=== PATIENT | female | born 1985 | race American Indian/Alaskan Native ===

== ENCOUNTER 2022-02-08 18:27 | Inpatient (IN) | payer OTHER ==
[2022-02-08] MEDS ORDERED: ACETAMINOPHEN 325 MG TAB PO PRN (23:39)
[2022-02-08] MEDS ORDERED: fentaNYL 100 MCG/2 ML INJ IV PRN (23:39)
[2022-02-08] MEDS ORDERED: ePHEDrine SULFATE 50 MG/1 ML INJ IV PRN (23:39)
[2022-02-08] MEDS ORDERED: BUTORPHANOL 2 MG/1 ML INJ IV PRN (23:39)
[2022-02-08] MEDS ORDERED: LIDOCAINE (2%) 20 MG/1 ML VIAL 20 ML MDV INFILTRATI ONE (23:39)
[2022-02-08] MEDS ORDERED: LACTATED RINGERS 1,000 ML IV SCH (23:45)
[2022-02-08] MEDS ORDERED: OXYTOCIN DRIP 30 UNITS/500 ML BAG IV SCH (23:45)
[2022-02-09 00:21] LABS: Hematocrit 38.1 % (30.3-42.9); Hemoglobin 12.3 gm/dl (10.1-14.3); Mean Corpuscular HGB Conc 32 % (30-34); Mean Corpuscular Volume 82 fl (79-97); Platelet Count 229 K/mm3 (140-440); Red Blood Count 4.65 M/mm3 (3.65-5.03); Red Cell Distribution Width 15.7 % (13.2-15.2)
[2022-02-09] MEDS ORDERED: ACETAMINOPHEN 325 MG TAB PO PRN (00:21)
[2022-02-09] MEDS ORDERED: WITCH HAZEL/ GLYCERIN PAD TP PRN (00:21)
[2022-02-09] MEDS ORDERED: LANOLIN/ZINC/DIMETHICONE (LANSINOH) 7 GM TP PRN (00:21)
[2022-02-09] MEDS ORDERED: HYDROcodone/ACETAMINOPHEN 5-325 MG TAB PO PRN (00:21)
[2022-02-09] MEDS ORDERED: BENZOCAINE/MENTHOL 20/0.5% TOP SPRAY 56 GM TP PRN (00:21)
[2022-02-09] MEDS: IBUPROFEN 800 MG TAB PO SCH ×5 (00:59→23:10)
[2022-02-09 01:03] LABS: Alanine Aminotransferase 9 units/L (7-56); Blood Urea Nitrogen 6 mg/dL (7-17); Calcium 8.7 mg/dL (8.4-10.2); Hemolysis Index 16
[2022-02-09 01:07] LABS: BUN/Creatinine Ratio 9
--- NOTE | 2022-02-09 01:07 | Procedure Note ---
OB Delivery Note - Delivery Date of Delivery: 02/08/22 Surgeon: ARMANDO SALAMANCA Estimated blood loss: 300cc - Vaginal Delivery presentation: vertex Delivery position: OA Intrapartum events: labor-<37 weeks, precipitous labor- <3hr Delivery induction: none Delivery monitor: external FHT, external uterine Route of delivery: Delivery placenta: spontaneous Delivery cord: 3 umbilical vessels Episiotomy: none Delivery laceration: 2nd degree Delivery repair: vicryl Anesthesia: local Delivery comments: This was a precipitous delivery. - Infant A at 1 minute: 7 at 5 minutes: 9 Infant Gender: Male
[2022-02-09 01:13] LABS: Bilirubin,Urine NEG (Negative); Blood,Urine NEG (Negative); Color,Urine Amber (Yellow)
--- NOTE | 2022-02-09 01:13 | History and Physical Report ---
History of Present Illness Date of examination: 02/08/22 Date of admission: 02/08/22 22:37 Chief complaint: Contractions History of present illness: 36-year-old primigravida at approximately 31-33 weeks gestation presented to OB triage reporting regular and painful uterine contractions. There was no vaginal bleeding. There was leaking of fluid. There was good movement. The patient reports that she did not realize that she was until today. She has no care. In OB triage, cervical exam was complete/100%/+2 station. The patient is ad mitted to labor and delivery in anticipation of a precipitous delivery. Past History Past Medical History: asthma Past Surgical History: no surgical history Family/Genetic History: none Social history: no significant social history - Obstetrical History Expected Date of Delivery: 04/06/22 Actual Gestation: 32 Week(s) 0 Day(s) : 1 Medications and Allergies Allergies Allergy/AdvReac Type Severity Reaction Status Date / Time nickel Allergy Rash Verified 02/08/22 18:59 Active Meds: Active Medications Acetaminophen (Acetaminophen 325 Mg Tab) 650 mg PO Q4H PRN PRN Reason: Pain MILD(1-3)/Fever >100.5/RICHARD Hydrocodone Bitart/Acetaminophen (Hydrocodone/Acetaminophen 5-325 Mg Tab) 2 each PO Q6H PRN PRN Reason: Pain, Moderate (4-6) Benzocaine/Menthol (Benzocaine/Menthol 20/0.5% Top [place] 56 Gm) 1 spray TP PRN PRN PRN Reason: Episiotomy Pain Docusate Sodium (Docusate Sodium 100 Mg Cap) 100 mg PO BID [facility] Ibuprofen (Ibuprofen 800 Mg Tab) 800 mg PO Q6HR [facility] Last Admin: 02/09/22 00:59 Dose: 800 mg Multi-Ingredient Ointment (Lanolin/Zinc/Dimethicone (Lansinoh) 7 Gm) 1 applic TP PRN PRN PRN Reason: Sore Nipples Multivitamins/Iron/Calcium ( [id number] Fumarate-Folic Acid Vit Tab) 1 ea ch PO QDAY [facility] Sodium Chloride (Sodium Chloride 0.9% 10 Ml Flush Syringe) 10 ml IV PRN NR Stop: 02/10/22 00:59 Witch Trina/Glycerin (Witch Tirna/ Glycerin Pad) 1 each TP PRN PRN PRN Reason: Hemorrhoid/cleansing/soothing Review of Systems All systems: negative - Vital Signs Vital signs: Vital Signs Temp Pulse Resp BP Pulse Ox 98.9 F 88 16 150/80 100 02/08/22 18:54 02/08/22 18:54 02/08/22 18:54 02/08/22 18:54 02/08/22 18:54 Temp Pulse Resp BP Pulse Ox 98.5 F 69 20 159/89 98 02/08/22 22:51 02/09/22 01:02 02/08/22 22:51 02/09/22 00:57 02/09/22 01:02 - Physical Exam Breasts: Positive: normal Cardiovascular: Regular rate Lungs: Positive: Normal air movement Abdomen: Positive: normal appearance Genitourinary (Female): Positive: normal external genitalia, normal perenium Vulva: both: normal Vagina: Positive: normal moisture Uterus: Positive: enlarged Adnexa: both: normal Anus/Rectum: Positive: normal perianal skin, hemorrhoids Extremities: Positive: normal Deep Tendon Reflex Grade: Normal +2 - Obstetrical FHR: category 1 Uterine Contraction Monitor Mode: Palpation Cervical Dilatation: 10 Cervical Effacement Percentage: 100 station: +2 Uterine Contraction Frequency (min): 5 Uterine Contraction Pattern: Regular Results Result Diagrams: 02/08/22 22:35 02/09/22 00:33 Abnormal lab results 02/08/22 Range/Units 22:35 WBC 15.6 H (4.5-11.0) K/mm3 MCH 26 L (28-32) pg RDW 15.7 H (13.2-15.2) % All other labs normal. Assessment and Plan - Patient Problems (1) labor in third trimester Current Visit: Yes Status: Acute Plan to address problem: 1.) This patient has no care. Gestational age is estimated to be between 31 and 33 weeks gestation. There is no reasonable opportunity at this time for intramuscular glucocorticoids to promote lung maturity or IV penicillin for intrapartum GBS prophylaxis since precipitous is eminent at this time. 2.) labs ordered. 3.) NICU will be in attendance.
[2022-02-09 01:25] LABS: Bacteria,Urine 2+ /HPF (Negative); Mucus,Urine 3+ /HPF
[2022-02-09 01:27] LABS: Amphetamine Screen,Urine PRESUMPTIVE NEGATIVE; Benzodiazepines Screen,Urine PRESUMPTIVE NEGATIVE; Cannabinoid Screen,Urine PRESUMPTIVE NEGATIVE; Cocaine Screen,Urine PRESUMPTIVE NEGATIVE; Methadone Screen,Urine PRESUMPTIVE NEGATIVE; Opiate Screen,Urine PRESUMPTIVE NEGATIVE
[2022-02-09 02:12] LABS: Uric Acid 4.6 mg/dL (3.5-7.6)
[2022-02-09 02:56] LABS: Creatinine,Urine 220.3 mg/dL (0.1-20.0)
[2022-02-09] MEDS: DOCUSATE SODIUM 100 MG CAP PO SCH ×2 (09:59→23:11)
[2022-02-09] MEDS: PRENATAL VIT27-FE FUMARATE-FOLIC ACID VIT TAB PO SCH (09:59)
--- NOTE | 2022-02-09 11:30 | Progress Note ---
Assessment and Plan PPD#1 with covid positive, asymptomatic on isolation and elevated BP 1. Will add labetalol 100mg bid for better control of HTN 2. Routine care; pt declines going home until tomorrow and will check cbc later this pm 3. All questions encouraged and answered Subjective Date of service: 02/09/22 Principal diagnosis: PPD#1 Interval history: pt has no complaints and went to see baby earlier unaware of positive covid until her test results returened. Vag bleed less than a period. Pt voiding without difficulty. Objective - Constitutional Vitals: Vital Signs - 12hr 02/08/22 02/08/22 02/08/22 23:32 23:37 23:42 Temperature Pulse Rate 73 79 83 Respiratory Rate Blood Pressure 157/77 Blood Pressure [Right] O2 Sat by Pulse 98 97 98 Oximetry O2 Sat by Pulse Oximetry [ Bilateral Throughout] 02/08/22 02/08/22 02/08/22 23:43 23:47 23:52 Temperature Pulse Rate 82 111 H 78 Respiratory Rate Blood Pressure 136/74 Blood Pressure [Right] O2 Sat by Pulse 99 97 Oximetry O2 Sat by Pulse Oximetry [ Bilateral Throughout] 02/08/22 02/08/22 02/09/22 23:57 23:58 00:02 Temperature Pulse Rate 77 77 78 Respiratory Rate Blood Pressure 139/76 Blood Pressure [Right] O2 Sat by Pulse 97 97 Oximetry O2 Sat by Pulse Oximetry [ Bilateral Throughout] 02/09/22 02/09/22 02/09/22 00:07 00:12 00:13 Temperature Pulse Rate 76 70 67 Respiratory Rate Blood Pressure 153/85 Blood Pressure [Right] O2 Sat by Pulse 97 98 Oximetry O2 Sat by Pulse Oximetry [ Bilateral Throughout] 02/09/22 02/09/22 02/09/22 00:17 00:22 00:27 Temperature Pulse Rate 72 70 73 Respiratory Rate Blood Pressure Blood Pressure [Right] O2 Sat by Pulse 98 98 98 Oximetry O2 Sat by Pulse Oximetry [ Bilateral Throughout] 02/09/22 02/09/22 02/09/22 00:32 00:37 00:42 Temperature Pulse Rate 79 71 76 Respiratory Rate Blood Pressure 158/84 Blood Pressure [Right] O2 Sat by Pulse 98 98 97 Oximetry O2 Sat by Pulse Oximetry [ Bilateral Throughout] 02/09/22 02/09/22 02/09/22 00:47 00:52 00:57 Temperature Pulse Rate 83 90 74 Respiratory Rate Blood Pressure 159/89 Blood Pressure [Right] O2 Sat by Pulse 97 97 97 Oximetry O2 Sat by Pulse Oximetry [ Bilateral Throughout] 02/09/22 02/09/22 02/09/22 01:02 01:07 01:12 Temperature Pulse Rate 69 77 76 Respiratory Rate Blood Pressure Blood Pressure [Right] O2 Sat by Pulse 98 97 98 Oximetry O2 Sat by Pulse Oximetry [ Bilateral Throughout] 02/09/22 02/09/22 02/09/22 01:17 01:22 01:27 Temperature Pulse Rate 80 78 68 Respiratory Rate Blood Pressure Blood Pressure [Right] O2 Sat by Pulse 97 98 99 Oximetry O2 Sat by Pulse Oximetry [ Bilateral Throughout] 02/09/22 02/09/22 02/09/22 01:28 01:32 01:37 Temperature Pulse Rate 64 72 67 Respiratory Rate Blood Pressure 157/84 Blood Pressure [Right] O2 Sat by Pulse 98 99 Oximetry O2 Sat by Pulse Oximetry [ Bilateral Throughout] 02/09/22 02/09/22 02/09/22 01:42 01:47 01:52 Temperature Pulse Rate 68 77 71 Respiratory Rate Blood Pressure Blood Pressure [Right] O2 Sat by Pulse 97 98 98 Oximetry O2 Sat by Pulse Oximetry [ Bilateral Throughout] 02/09/22 02/09/22 02/09/22 01:57 01:58 02:02 Temperature Pulse Rate 70 67 71 Respiratory Rate Blood Pressure 157/83 Blood Pressure [Right] O2 Sat by Pulse 97 97 Oximetry O2 Sat by Pulse Oximetry [ Bilateral Throughout] 02/09/22 02/09/22 02/09/22 02:07 02:12 02:17 Temperature Pulse Rate 69 67 66 Respiratory Rate Blood Pressure Blood Pressure [Right] O2 Sat by Pulse 97 97 97 Oximetry O2 Sat by Pulse Oximetry [ Bilateral Throughout] 02/09/22 02/09/22 02/09/22 02:22 02:27 02:28 Temperature Pulse Rate 63 65 61 Respiratory Rate Blood Pressure 158/84 Blood Pressure [Right] O2 Sat by Pulse 97 97 Oximetry O2 Sat by Pulse Oximetry [ Bilateral Throughout] 02/09/22 02/09/22 02/09/22 02:32 02:37 02:42 Temperature Pulse Rate 65 64 62 Respiratory Rate Blood Pressure Blood Pressure [Right] O2 Sat by Pulse 97 97 97 Oximetry O2 Sat by Pulse Oximetry [ Bilateral Throughout] 02/09/22 02/09/22 02/09/22 02:47 02:52 02:57 Temperature Pulse Rate 59 L 61 61 Respiratory Rate Blood Pressure Blood Pressure [Right] O2 Sat by Pulse 97 98 99 Oximetry O2 Sat by Pulse Oximetry [ Bilateral Throughout] 02/09/22 02/09/22 02/09/22 02:58 02:59 03:42 Temperature 98.5 F 98.2 F Pulse Rate 57 L 83 Respiratory 17 18 Rate Blood Pressure 149/85 133/89 Blood Pressure [Right] O2 Sat by Pulse 98 Oximetry O2 Sat by Pulse Oximetry [ Bilateral Throughout] 02/09/22 02/09/22 02/09/22 04:23 06:01 07:15 Temperature 98.0 F Pulse Rate 61 Respiratory 18 16 Rate Blood Pressure Blood Pressure 144/86 [Right] O2 Sat by Pulse 97 Oximetry O2 Sat by Pulse 98 Oximetry [ Bilateral Throughout] 02/09/22 07:28 Temperature Pulse Rate Respiratory Rate Blood Pressure Blood Pressure [Right] O2 Sat by Pulse Oximetry O2 Sat by Pulse 99 Oximetry [ Bilateral Throughout] General appearance: Present: no acute distress - Respiratory Respiratory effort: normal - Breasts Breasts: deferred - Cardiovascular Rhythm: regular - Gastrointestinal General gastrointestinal: Present: soft, non-tender - Genitourinary Female genitourinary: other (fundus firm 2cm below the umbilicus, firm and non- tender; no perineal swelling; lochia moderate) - Integumentary Integumentary: warm, dry - Neurologic Neurologic: moves all extremities - Psychiatric Psychiatric: cooperative - Labs CBC & Chem 7: 02/08/22 22:35 02/09/22 00:33 Labs: Abnormal lab results 02/08/22 02/09/22 02/09/22 Range/Units 22:35 00:22 00:22 WBC 15.6 H (4.5-11.0) K/mm3 MCH 26 L (28-32) pg RDW 15.7 H (13.2-15.2) % Sodium (137-145) mmol/L Carbon Dioxide (22-30) mmol/L BUN (7-17) mg/dL Glucose (65-100) mg/dL Alkaline Phosphatase (35-129) units/L Lactate Dehydrogenase (91-180) units/L Albumin (3.9-5) g/dL Urine WBC (Auto) 8.0 H (0.0-6.0) /HPF Urine Creatinine 220.3 H (0.1-20.0) mg/dL Urine Total Protein 219 H (5-11.8) mg/dL SARS-CoV-2 (PCR) (Negative) 02/09/22 02/09/22 Range/Units 00:33 10:25 WBC (4.5-11.0) K/mm3 MCH (28-32) pg RDW (13.2-15.2) % Sodium 133 L (137-145) mmol/L Carbon Dioxide 15 L (22-30) mmol/L BUN 6 L (7-17) mg/dL Glucose 172 H (65-100) mg/dL Alkaline Phosphatase 200 H (35-129) units/L Lactate Dehydrogenase 195 H (91-180) units/L Albumin 3.0 L (3.9-5) g/dL Urine WBC (Auto) (0.0-6.0) /HPF Urine Creatinine (0.1-20.0) mg/dL Urine Total Protein (5-11.8) mg/dL SARS-CoV-2 (PCR) Positive A (Negative) Medications & Allergies - Medications Allergies/Adverse Reactions: Allergies nickel Allergy (Verified 02/08/22 18:59) Rash Active Medications: Generic Name Dose Route Start Last Admin Trade Name Freq PRN Reason Stop Dose Admin Acetaminophen 650 mg 02/09/22 00:21 Acetaminophen 325 Mg Tab PO Q4H PRN Pain MILD(1-3)/Fever >100.5/RICHARD Hydrocodone Bitart/Acetaminophen 2 each 02/09/22 00:21 Hydrocodone/Acetaminophen 5-325 Mg Tab PO Q6H PRN Pain, Moderate (4-6) Benzocaine/Menthol 1 spray 02/09/22 00:21 02/09/22 06:01 Benzocaine/Menthol 20/0.5% Top [place] 56 Gm TP 1 spray PRN PRN Administration Episiotomy Pain Docusate Sodium 100 mg 02/09/22 10:00 02/09/22 09:59 Docusate Sodium 100 Mg Cap PO 100 mg BID ROMAN Administration Ibuprofen 800 mg 02/09/22 01:00 02/09/22 06:01 Ibuprofen 800 Mg Tab PO 800 mg Q6HR ROMAN Administration Labetalol HCl 100 mg 02/09/22 11:25 Labetalol 100 Mg Tab PO BID ROMAN Multi-Ingredient Ointment 1 applic 02/09/22 00:21 Lanolin/Zinc/Dimethicone (Lansinoh) 7 Gm TP PRN PRN Sore Nipples Multivitamins/Iron/Calcium 1 each 02/09/22 10:00 02/09/22 09:59 [id number] Fumarate-Folic Acid Vit Tab PO 1 each QDAY ROMAN Administration Sodium Chloride 10 ml 02/09/22 01:00 Sodium Chloride 0.9% 10 Ml Flush Syringe IV 02/10/22 00:59 PRN NR Witch Trina/Glycerin 1 each 02/09/22 00:21 02/09/22 06:01 Witch Trina/ Glycerin Pad TP 1 each PRN PRN Administration Hemorrhoid/cleansing/soothing
[2022-02-09 21:03] LABS: Hematocrit 30.9 % (30.3-42.9); Mean Corpuscular HGB Conc 32 % (30-34); Mean Corpuscular Volume 83 fl (79-97); Platelet Count 183 K/mm3 (140-440); Red Blood Count 3.71 M/mm3 (3.65-5.03)
[2022-02-10] MEDS: IBUPROFEN 800 MG TAB PO SCH (05:45)
[2022-02-10 08:33] VITALS: BP 138/91
--- NOTE | 2022-02-10 10:02 | Progress Note ---
Assessment and Plan PPD#2 doing well with asymptomatic covid in isolation; Leucocytosis seen 1. Discharge pt home after cbc repeated and same decreased to 13 and therefore no meds needed Subjective Date of service: 02/10/22 Principal diagnosis: PPD#2 Interval history: pt has no complaints per nurse report Objective - Constitutional Vitals: Vital Signs - 12hr 02/09/22 02/09/22 02/10/22 23:10 23:54 07:45 Temperature 97.3 F L Pulse Rate 64 93 H Respiratory 18 Rate Blood Pressure 128/92 123/88 Blood Pressure [Right] O2 Sat by Pulse 98 Oximetry O2 Sat by Pulse 98 Oximetry [ Bilateral Throughout] 02/10/22 08:31 Temperature 97.9 F Pulse Rate 78 Respiratory 20 Rate Blood Pressure Blood Pressure 138/91 [Right] O2 Sat by Pulse 98 Oximetry O2 Sat by Pulse Oximetry [ Bilateral Throughout] General appearance: Present: no acute distress - Neck Neck: normal ROM - Respiratory Respiratory effort: normal - Cardiovascular Rhythm: regular Extremities: No edema - Gastrointestinal General gastrointestinal: Present: soft, non-tender - Genitourinary Female genitourinary: other (Fundus firm and non-tender) - Integumentary Integumentary: warm, dry - Neurologic Neurologic: moves all extremities - Psychiatric Psychiatric: cooperative - Labs CBC & Chem 7: 02/10/22 10:36 02/09/22 00:33 Labs: Abnormal lab results 02/09/22 02/09/22 Range/Units 10:25 20:38 WBC 16.8 H (4.5-11.0) K/mm3 Hgb 10.0 L (10.1-14.3) gm/dl MCH 27 L (28-32) pg RDW 16.0 H (13.2-15.2) % SARS-CoV-2 (PCR) Positive A (Negative) Medications & Allergies - Medications Allergies/Adverse Reactions: Allergies nickel Allergy (Verified 02/08/22 18:59) Rash Active Medications: Generic Name Dose Route Start Last Admin Trade Name Freq PRN Reason Stop Dose Admin Acetaminophen 650 mg 02/09/22 00:21 Acetaminophen 325 Mg Tab PO Q4H PRN Pain MILD(1-3)/Fever >100.5/RICHARD Hydrocodone Bitart/Acetaminophen 2 each 02/09/22 00:21 Hydrocodone/Acetaminophen 5-325 Mg Tab PO Q6H PRN Pain, Moderate (4-6) Benzocaine/Menthol 1 spray 02/09/22 00:21 02/09/22 06:01 Benzocaine/Menthol 20/0.5% Top [place] 56 Gm TP 1 spray PRN PRN Administration Episiotomy Pain Docusate Sodium 100 mg 02/09/22 10:00 02/09/22 23:11 Docusate Sodium 100 Mg Cap PO 100 mg BID ROMAN Administration Ibuprofen 800 mg 02/09/22 01:00 02/10/22 05:45 Ibuprofen 800 Mg Tab PO 800 mg Q6HR ROMAN Administration Labetalol HCl 100 mg 02/09/22 11:25 02/09/22 23:10 Labetalol 100 Mg Tab PO 100 mg BID ROMAN Administration Multi-Ingredient Ointment 1 applic 02/09/22 00:21 Lanolin/Zinc/Dimethicone (Lansinoh) 7 Gm TP PRN PRN Sore Nipples Multivitamins/Iron/Calcium 1 each 02/09/22 10:00 02/09/22 09:59 [id number] Fumarate-Folic Acid Vit Tab PO 1 each QDAY ROMAN Administration Witch Trina/Glycerin 1 each 02/09/22 00:21 02/09/22 06:01 Witch Trina/ Glycerin Pad TP 1 each PRN PRN Administration Hemorrhoid/cleansing/soothing
--- NOTE | 2022-02-10 10:03 | Discharge Summary ---
Providers - Providers Date of Admission: 02/08/22 22:37 Date of discharge: 02/10/22 Attending physician: ARMANDO SALAMANCA MD 02/09/22 08:00 Consult to Case Management [CONS] Routine Services Needed at Discharge: [employer] Notified:: n/a Comment:: no PNC. states didn't know she was . Primary care physician: ARMANDO SALAMANCA MD Hospitalization Reason for admission: IUP - Episiotomy: none Laceration: 2nd degree complications: other (preeclampsia and given IV mag sulfate x24hrs and covid positive but asymptomatic on labs) Discharge diagnosis: delivery baby: male Hospital course: precipitous vag delivery with no care. pt given mag sulfate for preeclampsia. Pt remained BP wnl without meds and desired to go home on day #1 and therefore she was discharged. Condition at discharge: Good Disposition: 01 HOME / SELF CARE / HOMELESS Plan - Provider Discharge Summary Diet: routine Instructions: routine Additional instructions: [] Smoking cessation referral if applicable(refer to patient education folder for contact #) [] Refer to [facility] Booklet Call your doctor immediately for: * Fever > 100.5 * Heavy vaginal bleeding ( >1 pad per hour) * Severe persistent headache * Shortness of breath * Reddened, hot, painful area to leg or breast * Drainage or odor from incision. * Keep incision clean and dry at all times and follow doctor's instructions regarding bathing/showering - Follow up plan Follow up: DELIO PINZON MD [Staff Physician] - 6 Weeks ARMANDO SALAMANCA MD [Primary Care Provider] - 6 Weeks Forms: [facility] Discharge Summary
[2022-02-10] MEDS: DOCUSATE SODIUM 100 MG CAP PO SCH (10:17)
[2022-02-10] MEDS: PRENATAL VIT27-FE FUMARATE-FOLIC ACID VIT TAB PO SCH (10:17)
[2022-02-10 11:28] LABS: Basophils % (Auto) 0.3 % (0.0-1.8); Eosinophils # (Auto) 0.1 K/mm3 (0.0-0.4); Eosinophils % (Auto) 0.5 % (0.0-4.3); Hematocrit 32.2 % (30.3-42.9); Hemoglobin 9.9 gm/dl (10.1-14.3); Lymphocytes # (Auto) 1.5 K/mm3 (1.2-5.4); Lymphocytes % (Auto) 11.4 % (13.4-35.0); Mean Corpuscular HGB Conc 31 % (30-34); Mean Corpuscular Volume 83 fl (79-97); Monocytes % (Auto) 7.6 % (0.0-7.3); Platelet Count 204 K/mm3 (140-440); Red Blood Count 3.87 M/mm3 (3.65-5.03); Red Cell Distribution Width 16.2 % (13.2-15.2)
== END 2022-02-10 15:19 | disposition home or self-care (01) | DRG 805 ==
LOC: EDSTATUS 22:23 → LD 22:37 → OB 02-09 03:56
PROVIDERS: ADMIT Obstetrics & Gynecology Gynecology; ATTEND Obstetrics & Gynecology Gynecology
PROC: 10E0XZZ Delivery of Products of Conception, External Approach (ICD-10-PCS; principal; 2022-02-08)
PROC: 0KQM0ZZ Repair Perineum Muscle, Open Approach (ICD-10-PCS; 2022-02-08)
DX: O60.14X0 Preterm labor third trimester with preterm delivery third trimester, not applicable or unspecified (principal); U07.1 COVID-19; Z37.0 Single live birth; O98.53 Other viral diseases complicating the puerperium; Z3A.32 32 weeks gestation of pregnancy; O62.3 Precipitate labor; O70.1 Second degree perineal laceration during delivery; O14.95 Unspecified pre-eclampsia, complicating the puerperium
CPT/HCPCS: 36415; 80053; 80307; 81001; 82570; 83615; 84156; 84550; 85025; 85027; 86592; 86706; 86762; 86850; 86900; 86901; 87806; 88307; 99211; G0378; J3490; G0463; U0003